=== PATIENT | male | born 1970 | race Caucasian/White ===

== ENCOUNTER 2020-12-10 12:04 | Observation (INO) ==
[2020-12-10] MEDS ORDERED: Ondansetron 4 MG/2 ML VIAL IVP PRN ×4 (13:31→19:57)
[2020-12-10] MEDS ORDERED: Pantoprazole 40 MG VIAL IVP SCH (13:45)
[2020-12-10] MEDS ORDERED: Acetaminophen IV 1,000 MG/100 ML BAG IVPB STA (14:07)
[2020-12-10] MEDS ORDERED: 0.9 % Sodium Chloride 1,000 ML IVC SCH ×3 (14:15→19:57)
[2020-12-10] MEDS ORDERED: Piperacillin/Tazobactam 3.375 GM in 0.9 % Sodium Chloride Mini Bag 100 ML IVPB SCH (15:00)
[2020-12-10] MEDS ORDERED: *HR* Rocuronium Bromide 50 MG/5 ML VIAL ONE (16:45)
[2020-12-10] MEDS ORDERED: Lidocaine -MPF 2% 2 ML VIAL ONE (16:45)
[2020-12-10] MEDS ORDERED: *HR* Midazolam HCl 2 MG/2 ML VIAL ONE ×2 (16:45→17:50)
[2020-12-10] MEDS ORDERED: *HR* FentaNYL (PF) 100 MCG/2 ML VIAL ONE (16:45)
[2020-12-10] MEDS ORDERED: Ondansetron 4 MG/2 ML VIAL ONE (16:45)
[2020-12-10] MEDS ORDERED: *HR* Propofol 200 MG/20 ML VIAL IVP ONE (16:45)
[2020-12-10] MEDS ORDERED: Lidocaine HCL 4 ML Topical Solution (Laryng-O-Jet Kit Sterile Pak) TP ONE (16:48)
[2020-12-10] MEDS ORDERED: CefOXitin 1,000 MG VIAL ONE (17:31)
[2020-12-10] MEDS ORDERED: Acetaminophen IV 1,000 MG/100 ML BAG IVPB ONE ×2 (17:36→19:57)
[2020-12-10] MEDS ORDERED: *HR* HYDROmorphone 2 MG TABLET PO PRN ×2 (17:36→19:57)
[2020-12-10] MEDS ORDERED: *HR* Labetalol 20 MG/4 ML SYRINGE IVP PRN ×2 (17:36→19:57)
[2020-12-10] MEDS ORDERED: Famotidine 20 MG/2 ML VIAL IVP ONE ×2 (17:36→19:57)
[2020-12-10] MEDS ORDERED: *HR* HYDROmorphone (PF) 1 MG/ML SYRINGE IVP PRN ×2 (17:36→19:57)
[2020-12-10] MEDS ORDERED: Promethazine 6.25 MG in Water for inj. (sterile) 20 ML IVPB PRN ×2 (17:36→19:57)
[2020-12-10] MEDS ORDERED: *HR* OxyCODONE Immed Rel 5 MG TABLET PO PRN ×2 (17:36→19:57)
[2020-12-10] MEDS ORDERED: Ketorolac 30 MG/ML VIAL ONE (18:34)
[2020-12-10] MEDS ORDERED: Sugammadex Sodium 200 MG/2 ML VIAL IV ONE (18:39)
[2020-12-10] MEDS ORDERED: *HR* OxyCODONE/APAP 5/325 TABLET PO PRN ×2 (18:45→19:57)
[2020-12-10] MEDS ORDERED: *HR* Metoprolol 5 MG/5 ML VIAL IVP PRN ×2 (18:45→19:57)
[2020-12-10] MEDS: 0.9 % Sodium Chloride 1,000 ML IVC SCH (22:28)
[2020-12-11] MEDS ORDERED: MetroNIDAZOLE 500 MG/100 ML 500 MG/100 ML BAG IVPB SCH
[2020-12-11] MEDS: MetroNIDAZOLE 500 MG/100 ML 500 MG/100 ML BAG IVPB SCH ×2 (01:01→08:55)
[2020-12-11] MEDS: Piperacillin/Tazobactam 3.375 GM in 0.9 % Sodium Chloride Mini Bag 100 ML IVPB SCH ×2 (01:01→08:55)
[2020-12-11] MEDS: 0.9 % Sodium Chloride 1,000 ML IVC SCH (01:01)
[2020-12-11] MEDS ORDERED: Pantoprazole 40 MG VIAL IVP SCH (09:00)
[2020-12-11 11:35] VITALS: BP 125/71; PULSE 86; TEMP 98; O2SAT 97
== END 2020-12-11 14:36 | disposition home or self-care (01) ==
LOC: 2ANU
PROVIDERS: ADMIT Surgery; ATTEND Surgery